=== PATIENT | female | born 1970 | race Caucasian/White ===

== ENCOUNTER 2020-04-26 03:42 | Emergency (ER) | payer SELFPAY ==
[~2020-04-26 03:42] MED LIST: ASPIRIN 325MG325 MG PO
[2020-04-26 07:20] LABS: HEMOGLOBIN 13.9 gm/dl (12.3-15.3); RED BLOOD COUNT 4.07 M/UL (4.00-5.10); WHITE BLOOD COUNT 5.4 K/UL (4.5-11.0)
[2020-04-26 07:53] LABS: BUN/CREATININE RATIO 10 (0-10)
[2020-04-26] MEDS ORDERED: PROTONIX40 MG PO (17:40)
[2020-04-26] MEDS ORDERED: ZOFRAN4 MG PO (17:40)
[2020-04-26] MEDS ORDERED: FLAGYL500 MG PO (17:47)
== END 2020-04-26 17:54 | disposition home or self-care (01) ==
LOC: ER1 03:42
PROVIDERS: Emergency Medicine
DX: R10.84 Generalized abdominal pain (principal); R19.7 Diarrhea, unspecified; E87.6 Hypokalemia; R79.89 Other specified abnormal findings of blood chemistry; Z90.49 Acquired absence of other specified parts of digestive tract; Z90.710 Acquired absence of both cervix and uterus; Z98.890 Other specified postprocedural states
CPT/HCPCS: 74181; 80053; 83690; 84484; 85025; 93005; 96374; 96375; 96376; 99284; J2270; J2405; J2550; Q9967

== ENCOUNTER → 2020-07-16 00:57 | Emergency (ER) | payer SELFPAY ==
[~2020-07-16 00:57] MED LIST changes: +FLAGYL500 MG PO; +PROTONIX40 MG PO; +ZOFRAN4 MG PO
== END ==
LOC: ER1 00:57
DX: Z53.21 Procedure and treatment not carried out due to patient leaving prior to being seen by health care provider (principal)